=== PATIENT | male | born 1975 | race Caucasian/White ===

== ENCOUNTER 2017-11-19 23:03 | Emergency (ER) | payer SELFPAY ==
--- NOTE | 2017-11-19 23:08 | ER Report ---
History and Physical Time Seen By : 23:08 HPI/ROS CHIEF COMPLAINT: chest HISTORY OF PRESENT ILLNESS: This is a 41 year old male. He was brought to the ER by [facility]. He was having chest pain and dizziness. Chest pain is described as being over his whole chest, sharp and pinching. He says "armpit to armpit and neck to lower sternum." It comes and goes. He has no shortness of breath. He feels nauseated. He says he walked 400[place] recently. He is from [place]. He was downtown tonight at the [employer], but was feeling poorly so he walked away from the area and then called when he was feeling worse. He has not had much to eat or drink today. He denies having diarrhea or bowel problems. He denies any pain with urination or difficulty with urination. He was feeling really hot. He says that he is currently staying at the [facility] here in [place]. He denies a prior history of heart problems, blood clots or lung problems. He has had a mild headache as well. Allergies: Coded Allergies: No Known Drug Allergies (Unverified , 11/20/17) Home Meds Active Scripts Potassium Chloride (KLOR-CON M20) 20 Meq Tab.er.prt, 20 MEQ PO QDAY, #30 TAB 0 Refills Prov:AKIKO FLORES MD 11/20/17 Reviewed Nurses Notes: Yes Constitutional Vital Sign - Last 24 Hours 11/19/17 11/19/17 11/19/17 11/19/17 23:04 23:15 23:30 23:45 Temp 98.0 Pulse 58 59 60 52 Resp 16 29 15 22 B/P (MAP) 113/74 119/74 (89) Pulse Ox 98 94 95 90 O2 Delivery Room Air 11/20/17 11/20/17 11/20/17 11/20/17 00:00 00:15 00:30 00:45 Pulse 52 54 46 Resp 15 16 12 B/P (MAP) 116/70 (85) 126/76 (93) Pulse Ox 91 91 84 11/20/17 11/20/17 11/20/17 11/20/17 01:00 01:15 01:30 01:45 Pulse 45 58 52 61 Resp 10 15 14 17 B/P (MAP) 118/75 (89) 112/70 (84) Pulse Ox 90 91 90 89 11/20/17 01:52 Pulse 63 Resp 15 Pulse Ox 89 Physical Exam General Appearance: The patient is alert. No acute distress. Eyes: Pupils are equal, round. Reactive to light. No pallor or icterus, but does have some injection. Extraocular movements are intact. ENT: Mucous membranes are dry. Otherwise normal oral mucosa. Posterior oropharynx is normal. Normal tympanic membranes and canals. Neck: Supple and non tender. No lymphadenopathy. Respiratory: Lungs are clear to auscultation. There are no retractions or accessory muscle use. Cardiovascular: Bradycardia at times, at other normal sinus rhythm. Bradycardia appears sinus as well. No murmurs, gallops or rubs. Normal capillary refill. No edema. Gastrointestinal: Abdomen is soft and non tender. Nondistended. Normal active bowel sounds. Neurological: Alert and oriented x3. Cranial nerves II through XII show no acute deficits on my exam. No focal weakness or numbness. He feels dizzy when sitting up. Skin: Warm and dry. No rashes. Musculoskeletal: Extremities are nontender with palpation. No tenderness in palpation of the cervical, thoracic and lumbar spine. DIFFERENTIAL DIAGNOSIS: After history and physical exam, differential diagnosis was considered for dizziness and chest pain including but not limited to myocardial ischemia, near syncope from heat exhaustion, chest wall pain, pleural inflammation and pulmonary infectious causes. Medical Decision Making Data Points Result Diagram: 11/19/17 2300 11/19/17 2300 Laboratory Hematology Test 11/19/17 23:00 11/20/17 00:28 Red Blood Count 4.41 M/uL (4.00-5.60) Mean Corpuscular Volume 92.6 fL (80.0-96.0) Mean Corpuscular Hemoglobin 31.7 pg (26.0-33.0) Mean Corpuscular Hemoglobin Concent 34.2 g/dL (32.0-36.0) Red Cell Distribution Width 13.9 % (11.5-14.5) Mean Platelet Volume 9.3 fL (7.2-11.1) Neutrophils (%) (Auto) 58.8 % (39.4-72.5) Lymphocytes (%) (Auto) 27.7 % (17.6-49.6) Monocytes (%) (Auto) 9.8 % (4.1-12.4) Eosinophils (%) (Auto) 3.1 % (0.4-6.7) Basophils (%) (Auto) 0.6 % (0.3-1.4) Nucleated RBC Relative Count (auto) 0.0 /100WBC Neutrophils # (Auto) 4.2 K/uL (2.0-7.4) Lymphocytes # (Auto) 2.0 K/uL (1.3-3.6) Monocytes # (Auto) 0.7 K/uL (0.3-1.0) Eosinophils # (Auto) 0.2 K/uL (0.0-0.5) Basophils # (Auto) 0.0 K/uL (0.0-0.1) Nucleated RBC Absolute Count (auto) 0.00 K/uL Sodium Level 140 mmol/L (137-145) Potassium Level 3.0 mmol/L (3.5-5.0) Chloride Level 110 mmol/L (98-107) Carbon Dioxide Level 21 mmol/L (22-30) Blood Urea Nitrogen 9 mg/dl (9-21) Creatinine 0.80 mg/dl (0.66-1.25) Glomerular Filtration Rate Calc > 60.0 Random Glucose 96 mg/dl (75-110) Calcium Level 7.3 mg/dl (8.4-10.2) Total Bilirubin 0.3 mg/dl (0.2-1.3) Aspartate Amino Transf (AST/SGOT) 42 U/L (0-35) Alanine Aminotransferase (ALT/SGPT) 58 U/L (0-56) Alkaline Phosphatase 46 U/L (0-126) Troponin I < 0.012 ng/ml Total Protein 5.4 g/dl (6.3-8.2) Albumin 2.8 g/dl (3.5-5.0) Serum Alcohol < 10 mg/dl Urine Color Straw Urine Clarity Clear Urine pH 6.0 pH (4.8-9.5) Urine Specific [place] 1.003 Urine Protein Negative mg/dL (NEGATIVE) Urine Glucose (UA) Negative mg/dL (NEGATIVE) Urine Ketones Negative mg/dL (NEGATIVE) Urine Blood Negative (NEGATIVE) Urine Nitrite Negative (NEGATIVE) Urine Bilirubin Negative (NEGATIVE) Urine Urobilinogen Negative mg/dL (0.2-1.9) Urine Leukocyte Esterase Negative (NEGATIVE) Urine RBC None /HPF (0-2/HPF) Urine WBC <1 /HPF (0-5/HPF) Urine Squamous Epithelial Cells None /LPF (</=FEW) Urine Bacteria Negative /HPF (NONE-FEW) Urine Mucus None /HPF (NONE-FEW) Urine Opiates Screen Negative Urine Barbiturates Screen Negative Ur Tricyclic Antidepressants Screen Negative Urine Phencyclidine Screen Negative Urine Amphetamines Screen Negative Urine Benzodiazepines Screen Negative Urine Cocaine Screen Negative Urine Cannabinoids Screen Negative Chemistry Test 11/19/17 23:00 11/20/17 00:28 White Blood Count 7.1 k/uL (4.5-11.0) Red Blood Count 4.41 M/uL (4.00-5.60) Hemoglobin 14.0 g/dL (14.0-18.0) Hematocrit 40.8 % (42.0-52.0) Mean Corpuscular Volume 92.6 fL (80.0-96.0) Mean Corpuscular Hemoglobin 31.7 pg (26.0-33.0) Mean Corpuscular Hemoglobin Concent 34.2 g/dL (32.0-36.0) Red Cell Distribution Width 13.9 % (11.5-14.5) Platelet Count 206 K/uL (150-450) Mean Platelet Volume 9.3 fL (7.2-11.1) Neutrophils (%) (Auto) 58.8 % (39.4-72.5) Lymphocytes (%) (Auto) 27.7 % (17.6-49.6) Monocytes (%) (Auto) 9.8 % (4.1-12.4) Eosinophils (%) (Auto) 3.1 % (0.4-6.7) Basophils (%) (Auto) 0.6 % (0.3-1.4) Nucleated RBC Relative Count (auto) 0.0 /100WBC Neutrophils # (Auto) 4.2 K/uL (2.0-7.4) Lymphocytes # (Auto) 2.0 K/uL (1.3-3.6) Monocytes # (Auto) 0.7 K/uL (0.3-1.0) Eosinophils # (Auto) 0.2 K/uL (0.0-0.5) Basophils # (Auto) 0.0 K/uL (0.0-0.1) Nucleated RBC Absolute Count (auto) 0.00 K/uL Glomerular Filtration Rate Calc > 60.0 Calcium Level 7.3 mg/dl (8.4-10.2) Total Bilirubin 0.3 mg/dl (0.2-1.3) Aspartate Amino Transf (AST/SGOT) 42 U/L (0-35) Alanine Aminotransferase (ALT/SGPT) 58 U/L (0-56) Alkaline Phosphatase 46 U/L (0-126) Troponin I < 0.012 ng/ml Total Protein 5.4 g/dl (6.3-8.2) Albumin 2.8 g/dl (3.5-5.0) Serum Alcohol < 10 mg/dl Urine Color Straw Urine Clarity Clear Urine pH 6.0 pH (4.8-9.5) Urine Specific [place] 1.003 Urine Protein Negative mg/dL (NEGATIVE) Urine Glucose (UA) Negative mg/dL (NEGATIVE) Urine Ketones Negative mg/dL (NEGATIVE) Urine Blood Negative (NEGATIVE) Urine Nitrite Negative (NEGATIVE) Urine Bilirubin Negative (NEGATIVE) Urine Urobilinogen Negative mg/dL (0.2-1.9) Urine Leukocyte Esterase Negative (NEGATIVE) Urine RBC None /HPF (0-2/HPF) Urine WBC <1 /HPF (0-5/HPF) Urine Squamous Epithelial Cells None /LPF (</=FEW) Urine Bacteria Negative /HPF (NONE-FEW) Urine Mucus None /HPF (NONE-FEW) Urine Opiates Screen Negative Urine Barbiturates Screen Negative Ur Tricyclic Antidepressants Screen Negative Urine Phencyclidine Screen Negative Urine Amphetamines Screen Negative Urine Benzodiazepines Screen Negative Urine Cocaine Screen Negative Urine Cannabinoids Screen Negative Toxicology Test 11/19/17 23:00 11/20/17 00:28 Serum Alcohol < 10 mg/dl Urine Opiates Screen Negative Urine Barbiturates Screen Negative Ur Tricyclic Antidepressants Screen Negative Urine Phencyclidine Screen Negative Urine Amphetamines Screen Negative Urine Benzodiazepines Screen Negative Urine Cocaine Screen Negative Urine Cannabinoids Screen Negative Urinalysis Test 11/20/17 00:28 Urine Color Straw Urine Clarity Clear Urine pH 6.0 pH (4.8-9.5) Urine Specific [place] 1.003 Urine Protein Negative mg/dL (NEGATIVE) Urine Glucose (UA) Negative mg/dL (NEGATIVE) Urine Ketones Negative mg/dL (NEGATIVE) Urine Blood Negative (NEGATIVE) Urine Nitrite Negative (NEGATIVE) Urine Bilirubin Negative (NEGATIVE) Urine Urobilinogen Negative mg/dL (0.2-1.9) Urine Leukocyte Esterase Negative (NEGATIVE) Urine RBC None /HPF (0-2/HPF) Urine WBC <1 /HPF (0-5/HPF) Urine Squamous Epithelial Cells None /LPF (</=FEW) Urine Bacteria Negative /HPF (NONE-FEW) Urine Mucus None /HPF (NONE-FEW) EKG/Imaging EKG Interpretation 12 lead EKG: Rhythm: Sinus bradycardia, rate 59 [place]: normal QRS: normal ST segments: normal Imaging PORTABLE CHEST: Indication: Chest pain. Technique: 2 frontal images were obtained. Comparison: None. Skeletal and soft tissue structures: There is moderate dextroscoliosis in the thoracic spine. No acute skeletal deformity is identified. Heart and mediastinum: Within normal limits. Lung jimenes: There appears to be a small dense nodule in the left mid lung field , suggestive of granuloma. No parenchymal consolidation or volume loss is identified. There is vascular congestion. Pleural spaces: Unremarkable. Impression: No acute process is clearly identified. There may be a granuloma in the left mid lung field. Additional clinical correlation and follow-up imaging are recommended. Report Dictated By: Jas Gallo MD at 11/20/2017 12:01 AM ED Course/Re-evaluation Clinical Indication for ER IV: Hydration, IV Access ED Course After my initial evaluation, he was given a liter of normal saline. With the chest pain workup also gave him aspirin. His vital signs were normal, initially with elevated blood pressure, however this came down nicely with time. I gave him a second liter of normal saline as well as 20 mEq oral potassium because his potassium was a little low. Calcium was little low as well. He was able to rest comfortably and slept. Chest x-ray was negative. EKG showed the slight sinus bradycardia, but otherwise normal. I reviewed these findings with him and let him know that we could discharge him back to his motel room and he would need to rest and increase fluid intake over the next few days. When the nurses went to discharge him, he refused to leave. He said that he still was dizzy and would not leave. The nurse talked to him for quite a while but he was still refusing. At this point, we called the [place] [employer] and they came up and talked to him. While waiting for the police to come up, I observed the patient's behavior. He would stand at the edge of the bed and have his hands in the air, and start to shake and move his arms around. He would then pause this behavior and turn his head all the way around to see if we were watching and remain completely still, then turn back around and do this again. He would stop this and then walk to the bathroom and act as if he were going to fall and wave his arms around. Again he would pause and see if we were watching and was totally stable while looking to see if we were watching. It was very clear that he was not in distress and clearly faking this behavior. When the police arrived, we explained the situation. I went back in and spoke to him, again explaining the evaluation that we had done. He said that he still did not feel well. I let him know that he needed to rest and increase fluid intake over the next few days and that I understood that he did not feel well, but that he did not need to stay in the hospital. He told me that I had not done my job and that was malpractice. The officers spoke to him and eventually convinced him to leave, letting him know that if they did not that he could be charged with trespassing, and escorted him out of the building. He at first refused to get dressed or put on his shoes, but finally did so and then walked out of the building bent over, different gate than he had shown during the rest of the time here. He gave the nurse a long glare as he was leaving. Decision to Disposition Date: Nov 20, 2017 Decision to Disposition Time: 01:19 Depart Departure Latest Vital Signs Vital Signs Date Time Temp Pulse Resp B/P (MAP) Pulse Ox O2 Delivery O2 Flow Rate FiO2 11/20/17 01:52 63 15 89 11/20/17 01:30 112/70 (84) 11/19/17 23:04 98.0 Room Air Impression: Primary Impression: Chest pain Additional Impressions: Dehydration Hypokalemia Condition: Improved Disposition: HOME OR SELF-CARE New Scripts Potassium Chloride (KLOR-CON M20) 20 Meq Tab.er.prt 20 MEQ PO QDAY, #30 TAB 0 Refills Prov: AKIKO FLORES MD 11/20/17 Patient Instructions: Chest Pain (ED), Dehydration (ED), Hypokalemia (ED) Additional Instructions: Your labs, imaging and EKG did not show any major problems tonight. You were dehydrated. Your Potassium was a little low as well. You can either take a prescription Potassium supplement once a day, or increase foods that have increased potassium. Increase your oral fluid intake as well. Problem Qualifiers Primary Impression: Chest pain Chest pain type: unspecified Qualified Codes: R07.9 - Chest pain, unspecified AKIKO FLORES MD Nov 19, 2017 23:08
[2017-11-19] MEDS ORDERED: NS(*) 0.9% 1000 ML BAG 1,000 ML IV ONE (23:21)
[2017-11-19] MEDS ORDERED: ASPIRIN 81 MG CHEW PO ONE (23:25)
[2017-11-19 23:29] LABS: PLATELET COUNT, AUTOMATED 206 K/uL (150-450)
--- NOTE | 2017-11-19 23:31 | EKG ---
FACILITY: PATIENT NAME: ANH CHRISTINA : [id number] MR: [id number] V: [id number] EXAM DATE: ORDERING PHYSICIAN: AKIKO FLORES TECHNOLOGIST: CHERYL Test Reason : CHEST PAIN Blood Pressure : / mmHG Vent. Rate : 059 BPM Atrial Rate : 059 BPM P-R Int : 130 ms QRS Dur : 114 ms QT Int : 422 ms P-R-T Axes : 005 054 036 degrees QTc Int : 417 ms Sinus bradycardia Otherwise normal ECG No previous ECGs available Confirmed by WALT COFFMAN ([id number]) on 11/21/2017 2:48:02 PM Referred By: Confirmed By:WALT COFFMAN
[2017-11-20] MEDS ORDERED: NS(*) 0.9% 1000 ML BAG 1,000 ML IV ONE
[2017-11-20] MEDS ORDERED: POTASSIUM CHL 20 MEQ TABCR PO ONE
--- NOTE | 2017-11-20 00:08 | RADIOLOGY IMAGING REPORT ---
FACILITY: [facility] [place] PATIENT NAME: Jorge Dumont : 1975 MR: [id number] V: [id number] EXAM DATE: ORDERING PHYSICIAN: AKIKO FLORES TECHNOLOGIST: Location: [facility] [place] Patient: Jorge Dumont : 1975 Visit/Account:[id number] Date of Sevice: 11/19/2017 PORTABLE CHEST: Indication: Chest pain. Technique: 2 frontal images were obtained. Comparison: None. Skeletal and soft tissue structures: There is moderate dextroscoliosis in the thoracic spine. No acut e skeletal deformity is identified. Heart and mediastinum: Within normal limits. Lung jimenes: There appears to be a small dense nodule in the left mid lung field, suggestive of granu iraj. No parenchymal consolidation or volume loss is identified. There is vascular congestion. Pleural spaces: Unremarkable. Impression: No acute process is clearly identified. There may be a granuloma in the left mid lung fie ld. Additional clinical correlation and follow-up imaging are recommended. Report Dictated By: Jas Gallo MD at 11/20/2017 12:01 AM Report E-Signed By: Jas Gallo MD at 11/20/2017 12:04 AM WSN:[id number]
[2017-11-20] MEDS ORDERED: POTA20TA85 PO (01:21)
[2017-11-20 01:30] VITALS: BP 112/70
== END 2017-11-20 02:45 | disposition home or self-care (01) ==
LOC: ER 23:07
DX: E86.0 Dehydration (principal); E87.6 Hypokalemia; R07.9 Chest pain, unspecified; R00.1 Bradycardia, unspecified
CPT/HCPCS: 71045; 80305; 80320; 81001; 84484; 85025; 93005; 96360; 96361; 99284; J7030; 82040; 82247; 82310; 82374; 82435; 82565; 82947; 84075; 84132; 84155; 84295; 84450; 84460; 84520

== ENCOUNTER → 2017-11-19 | Outpatient (CLI) | payer SELFPAY ==
[~2017-11-19] MED LIST: LITH300T5 PO; MULT-1379 PO; NIC10R INH; NICOTROL INHALER PO; POTA20TA85 PO; RISP-29 PO
== END ==
LOC: AMB 22:40
PROVIDERS: ATTEND Nurse Practitioner
DX: R07.9 Chest pain, unspecified (principal)
CPT/HCPCS: A0425; A0427

== ENCOUNTER 2017-11-20 03:05 | Emergency (ER) | payer SELFPAY ==
[~2017-11-20 03:05] MED LIST changes: -LITH300T5 PO; -MULT-1379 PO; -NIC10R INH; -NICOTROL INHALER PO; -RISP-29 PO
--- NOTE | 2017-11-20 03:23 | ER Report ---
History and Physical Time Seen By MD: 03:22 Hx. of Stated Complaint: Patient just discharged. Now has suicidal thoughts. Was going to cut himself with a razor. Gave it to security control room officer out front HPI/ROS CHIEF COMPLAINT: suicidal thoughts HISTORY OF PRESENT ILLNESS: This is a 41 year old male. He was just discharged. He had not wanted to leave and the police had to be called to escort him out. He did leave and said that he was walking down the street and could not walk. He had a pink razor and thought about cutting himself. He did not cut himself. He came back to the hospital and gave the razor to the security control room officer and checked back in for suicidal thoughts. He says right now he is no longer suicidal. He denies any other self harm behaviors. Denies any alcohol or drug now or since leaving. He states that since he is suicidal, that maybe now I will help him. When asked what changed between when he left and now, reminding him that he had said he had no thoughts of self harm at his last visit, he makes some vague comment about external factors and internal factors. He says that he said things changed because he could not walk and was left to walk on his own to a truck stop. No other changes since he left less than an hour ago. Allergies: Coded Allergies: No Known Drug Allergies (Unverified , 11/20/17) Home Meds Active Scripts Potassium Chloride (KLOR-CON M20) 20 Meq Tab.er.prt, 20 MEQ PO QDAY, #30 TAB 0 Refills Prov:AKIKO FLORES MD 11/20/17 Reviewed Nurses Notes: Yes Hx Substance Use Disorder: No Hx Alcohol Use: No Constitutional Vital Sign - Last 24 Hours 11/20/17 03:13 Pulse 50 Resp 16 B/P (MAP) 138/86 Pulse Ox 93 O2 Delivery Room Air Physical Exam General Appearance: The patient is alert, has no immediate need for airway protection and no current signs of toxicity. Eyes: Pupils equal and round, no injection. ENT: Moist mucous membranes. Respiratory: Chest is non tender, Breathing easily. Cardiac: regular rate and rhythm Neuro: alert and oriented x 3. No acute distress. He walk walking with a more normal gait when he came back for this return visit. DIFFERENTIAL DIAGNOSIS: After history and physical exam differential diagnosis was considered for suicidal ideation Medical Decision Making Data Points Result Diagram: 11/20/17 0355 11/20/17 0355 Laboratory Hematology Test 11/20/17 03:55 11/20/17 04:43 Red Blood Count 4.86 M/uL (4.00-5.60) Mean Corpuscular Volume 92.5 fL (80.0-96.0) Mean Corpuscular Hemoglobin 31.5 pg (26.0-33.0) Mean Corpuscular Hemoglobin Concent 34.0 g/dL (32.0-36.0) Red Cell Distribution Width 14.3 % (11.5-14.5) Mean Platelet Volume 9.1 fL (7.2-11.1) Neutrophils (%) (Auto) 57.4 % (39.4-72.5) Lymphocytes (%) (Auto) 26.3 % (17.6-49.6) Monocytes (%) (Auto) 12.3 % (4.1-12.4) Eosinophils (%) (Auto) 3.1 % (0.4-6.7) Basophils (%) (Auto) 0.9 % (0.3-1.4) Nucleated RBC Relative Count (auto) 0.1 /100WBC Neutrophils # (Auto) 3.5 K/uL (2.0-7.4) Lymphocytes # (Auto) 1.6 K/uL (1.3-3.6) Monocytes # (Auto) 0.7 K/uL (0.3-1.0) Eosinophils # (Auto) 0.2 K/uL (0.0-0.5) Basophils # (Auto) 0.1 K/uL (0.0-0.1) Nucleated RBC Absolute Count (auto) 0.00 K/uL Sodium Level 141 mmol/L (137-145) Potassium Level 3.7 mmol/L (3.5-5.0) Chloride Level 109 mmol/L (98-107) Carbon Dioxide Level 23 mmol/L (22-30) Blood Urea Nitrogen 9 mg/dl (9-21) Creatinine 0.80 mg/dl (0.66-1.25) Glomerular Filtration Rate Calc > 60.0 Random Glucose 94 mg/dl (75-110) Calcium Level 8.1 mg/dl (8.4-10.2) Magnesium Level 2.1 mg/dl (1.7-2.2) Total Bilirubin 0.4 mg/dl (0.2-1.3) Aspartate Amino Transf (AST/SGOT) 44 U/L (0-35) Alanine Aminotransferase (ALT/SGPT) 63 U/L (0-56) Alkaline Phosphatase 54 U/L (0-126) Total Protein 6.0 g/dl (6.3-8.2) Albumin 3.3 g/dl (3.5-5.0) Salicylates Level < 10 mg/L Salicylate Last Dose Date unk Acetaminophen Level < 10 ug/ml Serum Alcohol < 10 mg/dl Urine Color Yellow Urine Clarity Clear Urine pH 5.0 pH (4.8-9.5) Urine Specific [place] 1.012 Urine Protein Negative mg/dL (NEGATIVE) Urine Glucose (UA) Negative mg/dL (NEGATIVE) Urine Ketones Negative mg/dL (NEGATIVE) Urine Blood Negative (NEGATIVE) Urine Nitrite Negative (NEGATIVE) Urine Bilirubin Negative (NEGATIVE) Urine Urobilinogen Negative mg/dL (0.2-1.9) Urine Leukocyte Esterase Negative (NEGATIVE) Urine RBC <1 /HPF (0-2/HPF) Urine WBC <1 /HPF (0-5/HPF) Urine Squamous Epithelial Cells None /LPF (</=FEW) Urine Bacteria Negative /HPF (NONE-FEW) Urine Mucus Few /HPF (NONE-FEW) Urine Opiates Screen Negative Urine Barbiturates Screen Negative Ur Tricyclic Antidepressants Screen Negative Urine Phencyclidine Screen Negative Urine Amphetamines Screen Negative Urine Benzodiazepines Screen Negative Urine Cocaine Screen Negative Urine Cannabinoids Screen Positive Chemistry Test 11/20/17 03:55 11/20/17 04:43 White Blood Count 6.0 k/uL (4.5-11.0) Red Blood Count 4.86 M/uL (4.00-5.60) Hemoglobin 15.3 g/dL (14.0-18.0) Hematocrit 45.0 % (42.0-52.0) Mean Corpuscular Volume 92.5 fL (80.0-96.0) Mean Corpuscular Hemoglobin 31.5 pg (26.0-33.0) Mean Corpuscular Hemoglobin Concent 34.0 g/dL (32.0-36.0) Red Cell Distribution Width 14.3 % (11.5-14.5) Platelet Count 201 K/uL (150-450) Mean Platelet Volume 9.1 fL (7.2-11.1) Neutrophils (%) (Auto) 57.4 % (39.4-72.5) Lymphocytes (%) (Auto) 26.3 % (17.6-49.6) Monocytes (%) (Auto) 12.3 % (4.1-12.4) Eosinophils (%) (Auto) 3.1 % (0.4-6.7) Basophils (%) (Auto) 0.9 % (0.3-1.4) Nucleated RBC Relative Count (auto) 0.1 /100WBC Neutrophils # (Auto) 3.5 K/uL (2.0-7.4) Lymphocytes # (Auto) 1.6 K/uL (1.3-3.6) Monocytes # (Auto) 0.7 K/uL (0.3-1.0) Eosinophils # (Auto) 0.2 K/uL (0.0-0.5) Basophils # (Auto) 0.1 K/uL (0.0-0.1) Nucleated RBC Absolute Count (auto) 0.00 K/uL Glomerular Filtration Rate Calc > 60.0 Calcium Level 8.1 mg/dl (8.4-10.2) Magnesium Level 2.1 mg/dl (1.7-2.2) Total Bilirubin 0.4 mg/dl (0.2-1.3) Aspartate Amino Transf (AST/SGOT) 44 U/L (0-35) Alanine Aminotransferase (ALT/SGPT) 63 U/L (0-56) Alkaline Phosphatase 54 U/L (0-126) Total Protein 6.0 g/dl (6.3-8.2) Albumin 3.3 g/dl (3.5-5.0) Salicylates Level < 10 mg/L Salicylate Last Dose Date unk Acetaminophen Level < 10 ug/ml Serum Alcohol < 10 mg/dl Urine Color Yellow Urine Clarity Clear Urine pH 5.0 pH (4.8-9.5) Urine Specific [place] 1.012 Urine Protein Negative mg/dL (NEGATIVE) Urine Glucose (UA) Negative mg/dL (NEGATIVE) Urine Ketones Negative mg/dL (NEGATIVE) Urine Blood Negative (NEGATIVE) Urine Nitrite Negative (NEGATIVE) Urine Bilirubin Negative (NEGATIVE) Urine Urobilinogen Negative mg/dL (0.2-1.9) Urine Leukocyte Esterase Negative (NEGATIVE) Urine RBC <1 /HPF (0-2/HPF) Urine WBC <1 /HPF (0-5/HPF) Urine Squamous Epithelial Cells None /LPF (</=FEW) Urine Bacteria Negative /HPF (NONE-FEW) Urine Mucus Few /HPF (NONE-FEW) Urine Opiates Screen Negative Urine Barbiturates Screen Negative Ur Tricyclic Antidepressants Screen Negative Urine Phencyclidine Screen Negative Urine Amphetamines Screen Negative Urine Benzodiazepines Screen Negative Urine Cocaine Screen Negative Urine Cannabinoids Screen Positive Toxicology Test 11/20/17 03:55 11/20/17 04:43 Salicylates Level < 10 mg/L Salicylate Last Dose Date unk Acetaminophen Level < 10 ug/ml Serum Alcohol < 10 mg/dl Urine Opiates Screen Negative Urine Barbiturates Screen Negative Ur Tricyclic Antidepressants Screen Negative Urine Phencyclidine Screen Negative Urine Amphetamines Screen Negative Urine Benzodiazepines Screen Negative Urine Cocaine Screen Negative Urine Cannabinoids Screen Positive Urinalysis Test 11/20/17 04:43 Urine Color Yellow Urine Clarity Clear Urine pH 5.0 pH (4.8-9.5) Urine Specific [place] 1.012 Urine Protein Negative mg/dL (NEGATIVE) Urine Glucose (UA) Negative mg/dL (NEGATIVE) Urine Ketones Negative mg/dL (NEGATIVE) Urine Blood Negative (NEGATIVE) Urine Nitrite Negative (NEGATIVE) Urine Bilirubin Negative (NEGATIVE) Urine Urobilinogen Negative mg/dL (0.2-1.9) Urine Leukocyte Esterase Negative (NEGATIVE) Urine RBC <1 /HPF (0-2/HPF) Urine WBC <1 /HPF (0-5/HPF) Urine Squamous Epithelial Cells None /LPF (</=FEW) Urine Bacteria Negative /HPF (NONE-FEW) Urine Mucus Few /HPF (NONE-FEW) ED Course/Re-evaluation ED Course I repeated his lab tests, as he had left the building for a short time. His drug screen came back positive for cannabinoids which was not positive previously. The rest of the labs were fairly unremarkable, improved from earlier after his fluids and oral potassium. Discussed the case with Dr. Waller, who accepted the patient for admission to [facility]. Of note: after his last visit, he had left a manilla envelope in the room. This contained information that showed he had come from [place], had been stopped by the police and been in residential here for a while. He was released at the end of October and has been here in town since then. There was information about drug possession and being in possession of a stolen vehicle. The patient did indicate to the nurse that he has a way to return home to [place] this Wednesday, although I do not know specifically what that was. Decision to Disposition Date: Nov 20, 2017 Decision to Disposition Time: 05:43 Depart Departure Latest Vital Signs Vital Signs Date Time Temp Pulse Resp B/P (MAP) Pulse Ox O2 Delivery O2 Flow Rate FiO2 11/20/17 03:13 50 16 138/86 93 Room Air Impression: Primary Impression: Suicidal ideation Condition: Condition Unchanged Disposition: XFER TO [facility] AKIKO FLORES MD Nov 20, 2017 03:23
[2017-11-20 04:07] LABS: PLATELET COUNT, AUTOMATED 201 K/uL (150-450)
[2017-11-20 06:06] VITALS: BP 137/80
== END 2017-11-20 06:08 ==
LOC: ER 03:12
DX: R45.851 Suicidal ideations (principal); F12.90 Cannabis use, unspecified, uncomplicated
CPT/HCPCS: 36415; 80305; 80320; 80329; 81001; 82040; 82247; 82310; 82374; 82435; 82565; 82947; 83735; 84075; 84132; 84155; 84295; 84443; 84450; 84460; 84520; 85025; 99283

== ENCOUNTER 2017-11-20 05:55 | Inpatient (IN) | payer SELFPAY ==
[2017-11-20] MEDS ORDERED: ACETAMINOPHEN 325 MG TAB PO PRN (06:35)
[2017-11-20] MEDS ORDERED: MAG HYD/AL HYD/SIMETH 30ML UDC PO PRN (06:35)
[2017-11-20 06:56] VITALS: BP 140/76
[2017-11-20] MEDS ORDERED: NICOTINE CARTRIDGE 1 EA PO PRN (11:10)
[2017-11-20] MEDS ORDERED: NICOTINE INH SYSTEM 10 MG/INH INH PRN (11:10)
[2017-11-20] MEDS ORDERED: MAGNESIUM SULF GRAN 454 GM BOX TP PRN (11:10)
[2017-11-20] MEDS: MULTIVITAMINS PO SCH (12:23)
[2017-11-20] MEDS: LITHIUM CARBONATE 300 MG CAP PO SCH ×2 (12:35→20:29)
[2017-11-20 13:30] VITALS: BP 120/69
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
[2017-11-20] MEDS ORDERED: OLANZapine 5 MG TAB PO SCH (21:00)
[2017-11-21 06:30] VITALS: BP 129/89
[2017-11-21] MEDS: MULTIVITAMINS PO SCH (09:00)
[2017-11-21] MEDS: LITHIUM CARBONATE 300 MG CAP PO SCH (09:00)
[2017-11-21] MEDS: ACETAMINOPHEN 325 MG TAB PO PRN (10:25)
[2017-11-21 12:55] VITALS: BP 128/68
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
[2017-11-21] MEDS: NICOTINE POLACRILEX 2 MG GUM PO PRN (17:44)
[2017-11-21 18:00] VITALS: BP 122/89
[2017-11-21] MEDS: risperiDONE 1 MG TAB PO SCH (20:08)
[2017-11-22 00:58] VITALS: BP 126/66
[2017-11-22] MEDS: ACETAMINOPHEN 325 MG TAB PO PRN (07:58)
[2017-11-22] MEDS: MULTIVITAMINS PO SCH (08:03)
[2017-11-22] MEDS: NICOTINE POLACRILEX 2 MG GUM PO PRN (09:22)
[2017-11-22] MEDS: LITHIUM CARBONATE 300 MG TABCR PO SCH (10:10)
--- NOTE | 2017-11-22 12:32 | BHS Progress Note ---
BHS - Subjective Progress Notes Subjective Pt seen. His mixed ryan is still quite evident, but better than yesterday. Still labile: smiling broadly, complimenting people, talking about idea to bring music groups to [facility] to spread good will, hyperactive, stood up watching an educational video with his pants rolled up above the knees, hypergraphia in his room, papers piled around the room. Sudden tears when talking about his daughter, says "I need glasses and then I won't cry." He did agree last night to take 5 mg of risperdal at bedtime, and now today he has changed his mind again and is now agreeable to adding lithium 300 q am and 600 q hs. Will get this started and perhaps if lithium helps we may be able to decrease risperdal dose in future. Will consider bringing him out of semi- confined room (in adolescent area) to full [place], but need to monitor him for good boundaries with peers given his hypomania (says "I like to give hugs!" smiling broadly). Suicidal Ideation: None Homicidal Ideation: None S - Objective Physical Exam Vital Signs Vital Signs 11/21/17 11/22/17 18:00 00:58 Temp 97.9 Pulse 84 Resp 18 B/P (MAP) 126/66 (86) Pulse Ox 94 O2 Delivery Room Air Muscle Strength and Tone: WNL Gait and Station: Steady [facility] Medications Reviewed: Side Effects, Benefits of Medication, Risks Allergies Reviewed: Yes Mental Status Exam General Appearance: Casual, Polite, Psychomotor Agitation, Bizarre Mannerisms Speech: Other (pressured) Mood: Dysthmic/Depressed, Hyperthymic, Other (very labile-- tears to euphoria) Affect: Agitated Thought Process: Loose Associations Thought Content: No Suicidal Ideation, No Homicidal Ideation, No Delusions, No Auditory Halllucinations, No Visual Hallucinations, No Thought Broadcasting, No Ideas of Reference, No Obsessions, No Compulsions, Other (lots of grandiose themes) Sensorium: Clear Cognition: Alert & Oriented-Person, Alert & Oriented-Place, Alert & Oriented- Time, No Iduao-Cdaelcqc-Vhbtfjchw, No Other Memory: Immediate, Recent, Remote Intelligence: Average Insight Judgment: Poor [facility] Assessment and Plan Qqzx-hz-Rpdr Encounter Date: Nov 22, 2017 Buia-bs-Mdua Encounter Time: 08:30 [facility] Plan: Admit to Unit, Necessary Precautions, Individual/Group Therapy, Admin /Titrate Meds, Educate Patient Tobacco Medications: Started Multpiple Antipsychotics Used: No Problems: (1) Bipolar disorder, curr episode mixed, severe, with psychotic features (2) Cannabis use disorder, severe, dependence RICHMOND ALEGRIA MD Nov 22, 2017 12:31
[2017-11-22 14:20] VITALS: BP 102/76
[2017-11-22] MEDS: risperiDONE 1 MG TAB PO SCH (20:19)
[2017-11-22] MEDS ORDERED: LITHIUM CARBONATE 300 MG TABCR PO SCH (21:00)
[2017-11-22 21:52] VITALS: BP 104/94
[2017-11-23 06:02] VITALS: BP 117/81
[2017-11-23] MEDS: ACETAMINOPHEN 325 MG TAB PO PRN (07:09)
[2017-11-23] MEDS: LITHIUM CARBONATE 300 MG TABCR PO SCH (08:14)
[2017-11-23] MEDS: MULTIVITAMINS PO SCH (08:14)
--- NOTE | 2017-11-23 11:52 | BHS Progress Note ---
[facility] - Subjective Progress Notes Subjective Patient remains humorous in nature on the unit, with some irritation present about remaining on the unit to long. Some flight of ideas continue, patient's appetite good, sleep improved. Will continue same medications, and contact family in [place]. Suicidal Ideation: None Homicidal Ideation: None [facility] - Objective Physical Exam Vital Signs Vital Signs Date Time Temp Pulse Resp B/P (MAP) Pulse Ox O2 Delivery O2 Flow Rate FiO2 11/23/17 06:02 99.0 66 15 117/81 (93) 92 Room Air Muscle Strength and Tone: WNL Gait and Station: Steady [facility] Medications Reviewed: Side Effects, Benefits of Medication, Risks Allergies Reviewed: Yes Mental Status Exam General Appearance: Casual, Polite, Psychomotor Agitation, Bizarre Mannerisms Speech: Other (pressured) Mood: No Dysthmic/Depressed, Hyperthymic, Other (mainly hyperthymic today) Affect: Agitated Thought Process: Goal Directed (currently stating he wants to go to a homeless residential. ), Loose Associations, Flight of Ideas Thought Content: No Suicidal Ideation, No Homicidal Ideation, No Delusions, No Auditory Halllucinations, No Visual Hallucinations, No Thought Broadcasting, No Ideas of Reference, No Obsessions, No Compulsions, Other (lots of grandiose themes) Sensorium: Clear Cognition: Alert & Oriented-Person, Alert & Oriented-Place, Alert & Oriented- Time, No Nfcte-Cmeodjyc-Cryhfdceq, No Other Memory: Immediate, Recent, Remote Intelligence: Average Insight Judgment: Poor (some progess with resolution of mixed episode. ) [facility] Assessment and Plan Ifxr-wm-Nfpn Encounter Date: Nov 23, 2017 Lhyc-ny-Ssbg Encounter Time: 10:00 [facility] Plan: Admit to Unit, Necessary Precautions, Individual/Group Therapy, Admin /Titrate Meds, Educate Patient Tobacco Medications: Started Multpiple Antipsychotics Used: No Problems: (1) Bipolar disorder, curr episode mixed, severe, with psychotic features Status: Chronic (2) Cannabis use disorder, severe, dependence Status: Chronic Condition 1. continue treatment. 2. lithium level in AM. 3. encourage patient to stay until symptoms are controlled and appropriate discharge plan can be arranged for this patient. TYREE THOMPSON MD Nov 23, 2017 11:52
[2017-11-23 11:54] VITALS: BP 126/98
[2017-11-23] MEDS ORDERED: LITH300T5 PO ×2 (12:39→12:40)
[2017-11-23] MEDS ORDERED: RISP-29 PO (12:40)
[2017-11-23] MEDS ORDERED: NIC10R INH (12:41)
[2017-11-23] MEDS ORDERED: MULT-1379 PO (12:41)
[2017-11-23] MEDS ORDERED: NICOTROL INHALER PO (12:42)
[2017-11-23] MEDS ORDERED: risperiDONE 1 MG TAB PO SCH ×2 (21:00)
[2017-11-23] MEDS ORDERED: LITHIUM CARBONATE 300 MG TABCR PO SCH ×3 (21:00)
[2017-11-24] MEDS ORDERED: LITHIUM CARBONATE 300 MG TABCR PO SCH (09:00)
--- NOTE | 2017-11-24 21:36 | DISCHARGE SUMMARY ---
DATE OF ADMISSION: November 20, 2017 DATE OF DISCHARGE: Against medical advice, November 23, 2017 Patient was seen at approximately 1100 hours on the a.m. of 23 November 2017 for note concerning this dictation. FINAL DIAGNOSES 1. Again, patient discharging against medical advice. 2. Bipolar disorder, recent mixed, severe, with psychotic features, partially resolved. 3. Cannabis use disorder, severe. REASON FOR ADMISSION This is a 41-year-old male who initially presented to the ER November 19, 2017, with chest pain. Patient was cleared, discharged to home. Patient then returned on November 20, 2017, professing suicidal ideation. Patient was admitted to the [facility] on a voluntary basis where patient displayed symptoms of bipolar disorder, current mixed episode with psychotic features. Patient has been long suffering from chronic mental illness. Please see H and P and full ER note for details. Patient was somewhat cooperative overall with medication. Patient was started on lithium and Risperdal. Patient was compliant. Some of the patient's symptoms started to resolve; however, patient then deciding to leave against medical advice. At the time of discharge, patient was not suffering from any mental illness to the standpoint that emergency detainment would be required. Patient was able to think logically and reason. Patient able to make a somewhat effective plan, although patient was encouraged to remain on the until to aim for further stability of bipolar disease. Patient was able to contact family members, however, and they are aware of his plans. Patient displaying no parasuicidal behaviors and adamantly denying suicidal or homicidal ideation at time of discharge against medical advice. PHYSICAL EXAMINATION Please see emergency room note. VITAL SIGNS: At time of admission, pulse 52, respiratory rate 16, blood pressure 138/86, pulse oximetry 93 on room air. At time of discharge from [facility], vital signs indicated temperature 98.3, pulse 104, respiratory rate 15, blood pressure 126/98, and pulse oximetry 95 on room air. LABORATORY DATA CBC at time of admission was unremarkable. CMP notable for AST elevated at 44, ALT elevated at 63, TSH 1.23. Urinalysis unremarkable. Toxicology screen positive for cannabis, negative for other substances of abuse with an undetectable serum alcohol level. MENTAL STATUS EXAMINATION GENERAL APPEARANCE, BEHAVIOR, AND ATTITUDE: At time of discharge, this is an overall polite and cooperative 41-year-old male, well groomed, making good eye contact, interacting well with this provider. No periods of tearfulness. Patient having some ongoing resolving symptoms of mixed episode bipolar disease , mostly of a hypomanic nature at time of discharge. SPEECH: Largely within normal limits. Regular rate, rhythm, volume, and tone. MOOD: Described as good. AFFECT: Full and bright. THOUGHT PROCESSES: Goal directed, patient indicating a desire to leave the unit immediately. Flight of ideas continued on a minimal basis at time of discharge. Patient overall logical. THOUGHT CONTENT: Free of any auditory or visual hallucinations, ideas of reference, thought broadcasting, delusions, obsessions, compulsions. Patient adamantly denying suicidal or homicidal ideation. SENSORIUM: Clear. COGNITION: Alert and oriented to person, place, time, situation. MEMORY: Immediate, recent, and remote estimated intact. INTELLIGENCE: Average based on interview. INSIGHT AND JUDGMENT: Considered grossly intact in the absence of cannabis use and while patient remains on mood stabilizing medications of lithium and Risperdal. RESULTS OF TESTING IMAGING: Chest x-ray on November 19, 2017, no acute process. Appears to be a granuloma in mid left lung field. LABORATORY DATA: See above. CONSULTATIONS None. TREATMENT Patient received medications, did participate in individual and group therapy. HOSPITAL COURSE Overall, patient was cooperative, agreed to restart lithium and Risperdal, and patient, again, participated in individual and group therapy. Patient's mixed episode of bipolar disorder was largely resolving at time of AMA discharge. Patient was encouraged to stay longer to fulfill stabilization on lithium and Risperdal, continue treatment, and work up an effective discharge plan; however , patient discharging against medical advice. CONDITION OF PATIENT ON DISCHARGE Stable, considered minimal risk to himself in the absence of cannabis and while patient remained on medications. DISPOSITION Patient discharged. The plan was the patient desired to take the bus to [place] to live in the homeless [facility]. Patient was given a three-day supply of medication from the Pharmacy as well as outpatient scripts. Patient would follow up with [facility] and get a lithium level in [place]. Patient would abstain from cannabis and all illicit substances. Crisis line was given should symptoms return. Patient encouraged to stop smoking and was encouraged to obtain nicotine replacement therapy on an [id number] basis. Risks, benefits, and alternatives of against medical advise discharge were discussed, patient accepting of risks of against medical advice discharge. He would call crisis line if symptoms return. DISCHARGE MEDICATIONS 1. [place] 300 mg q.a.m. and 600 mg at bedtime. 2. Risperdal 5 mg p.o. at bedtime. 3. Patient would remain on multivitamin as well. MTDD
== END 2017-11-23 13:19 | disposition left against medical advice (07) | DRG 885 ==
LOC: BHS 05:55
PROVIDERS: ADMIT Psychiatry & Neurology Psychiatry; ATTEND Psychiatry & Neurology Psychiatry
DX: F31.64 Bipolar disorder, current episode mixed, severe, with psychotic features (principal); R45.851 Suicidal ideations; F12.20 Cannabis dependence, uncomplicated; F17.210 Nicotine dependence, cigarettes, uncomplicated; L55.9 Sunburn, unspecified; S90.822A Blister (nonthermal), left foot, initial encounter; S90.821A Blister (nonthermal), right foot, initial encounter; Z53.29 Procedure and treatment not carried out because of patient's decision for other reasons; Z59.0 Homelessness; Z63.8 Other specified problems related to primary support group